=== PATIENT | female | born 1945 | race Caucasian/White ===

== ENCOUNTER 2025-05-01 02:06 | Inpatient (IN) | payer OTHER, SELFPAY ==
[2025-04-30 23:26] VITALS: BP 110/70
[2025-04-30 23:32] VITALS: BMI 37.7
[2025-04-30 23:33] VITALS: BP 110/70
[2025-04-30] MEDS: MORPHINE SULFATE 4 MG IV (23:35)
[2025-04-30] MEDS: ZOFRAN 4 MG IV (23:36)
[2025-04-30 23:50] LABS: Hematocrit 40.6 % (37.0-47.0); Hemoglobin 13.7 g/dL (12.0-16.0); Mean Corp Hgb Conc. 33.7 g/dL (33.0-37.0); Mean Corpuscular Volume 93.1 fL (81.0-99.0); Nucleated Red Blood Cells % 0 %; Platelet Count 225 10^3/uL (130-400); Red Cell Dist. Width 13.8 % (11.5-14.5)
[2025-04-30 23:56] LABS: INR 0.96; PT 13.1 Sec (11.4-14.6)
[2025-04-30 23:57] LABS: APTT 23.0 Sec (23.4-35.0)
[2025-05-01] VITALS (21 sets, daily range): BP systolic 100–142; BP diastolic 47–101
[2025-05-01 00:02] LABS: ALT (SGPT) 19 U/L (0-35); AST (SGOT) 26 U/L (14-36); Albumin 4.4 g/dl (3.5-5.0); Alkaline Phosphatase 49 U/L (38-126); Blood Urea Nitrogen 27 mg/dl (7-17); Calcium 9.4 mg/dl (8.4-10.2); Carbon Dioxide 28 mmol/L (22-30); Chloride 106 mmol/L (98-107); Estimated Creatinine Clearance 56 ml/min; Glucose 117 mg/dl (70-99); Potassium 4.2 mmol/L (3.5-5.1); Sodium 138 mmol/L (135-145); Total Protein 7.5 g/dl (6.3-8.2); eGFR > 60.00
--- NOTE | 2025-05-01 00:35 | ED.GENMED ---
History of Present Illness
General
Chief Complaint: Fall
Source: patient and ambulance crew
Exam Limitations: none
Time Seen by Provider: 04/30/25 23:21
History of Present Illness
History of Present Illness:
Note:
CHIEF COMPLAINT(S)
Right hip pain following a fall.
HISTORY OF PRESENT ILLNESS
The patient, a female whose age is not provided, presented with right hip pain after falling onto her right side [place] the [place]. She describes difficulty and pain with any movement of the right leg, which is noted to be shortened and
externally rotated. There is no associated head trauma, neck pain, or back pain. The patient denies any chest or abdominal pain. She has previously not had any surgeries on her hips. The fall caused some bruising on her right elbow as well, but
there is no significant pain noted there.
Additional History
EMS states that she missed a step coming out of a college building.
PAST SURGICAL HISTORY
The patient states she has not had any previous surgeries on her hips.
PHYSICAL EXAM
General: Alert, no acute distress.
Skin: Warm, dry. Right elbow shows small amount of ecchymosis.
Musculoskeletal: Right leg is shortened and externally rotated. Unable to flex the hip, and there is pain with internal and external rotation.
Neurological: Alert and oriented to person, place, time, and situation. No focal neurological deficits observed.
No respiratory distress
PROBLEM LIST
- Acute: Fall with suspected right hip fracture.
- Bruising on the right elbow.
PLAN
- Obtain X-rays to evaluate for a possible hip fracture.
- Pain management will be initiated with morphine.
- Discuss plan for surgical intervention if a hip fracture is confirmed.
DIFFERENTIAL DIAGNOSIS
The Differential Diagnosis includes, in no particular order and is not limited to:
1. Hip fracture
2. Hip dislocation
3. Soft tissue injury (e.g., contusion, sprain)
4. Femoral neck fracture
5. Trochanteric fracture
6. Pelvic fracture
7. Musculoskeletal strain
8. Nerve impingement
9. Bursitis
10. Osteoarthritis exacerbation
Disposition:
SUMMARY OF ENCOUNTER
The patient presented to the emergency department with right hip pain following a fall. On physical exam, the right leg appeared shortened and externally rotated, indicating a possible hip fracture. X-rays confirmed a right intertrochanteric
fracture. Initial management included pain control, and the patient was kept NPO in anticipation of surgical intervention.
DISPOSITION
Admit.
ASSESSMENT
The primary assessment is a right intertrochanteric hip fracture secondary to a fall.
MANAGEMENT OF THE PATIENTS CARE WAS DISCUSSED WITH
The case was discussed with the orthopedic team and the hospitalist for further management and surgical planning.
PLAN
Admit the patient for orthopedic evaluation and surgical intervention. Continue pain management and keep the patient NPO.
INDEPENDENT REVIEW OF LABS AND INTERPRETATION OF TESTS
My independent review of the chemistry panel shows normal results. My independent review of the CBC indicates normal results.
Radiology Results:
- My independent interpretation of the x-ray confirms a right intertrochanteric fracture.
MEDICATION RECONCILIATION
Pain management administered in the emergency department; specific medication not documented, but tuning of pain control plan discussed.
MEDICAL DECISION MAKING
-Complexity of Data Reviewed: Differential diagnosis included hip fracture, which was confirmed through imaging and relevant data analysis.
-Data:
Category 1
X-ray ordered and independently interpreted confirming intertrochanteric fracture.
Category 3
Discussion of management with orthopedic and hospitalist teams for admission and surgical intervention.
CRITICAL CARE TIME
I provided critical care time due to the high probability of significant deterioration. This included developing a management plan and discussions with specialists.
DIAGNOSIS
Right intertrochanteric fracture (ICD-10: S72.143A).
Phy Exam
Physical Exam
Physical Exam:
.
Course
Orders/Labs/Results
Orders:
Orders
04/30/25 23:33
Morphine Sulfate 4 mg IV NOW STA
Ondansetron Injectable [Zofran] 4 mg IV NOW STA
04/30/25 23:40
Complete Blood Count/With Diff Urgent
Comprehensive Metabolic Panel Urgent
PTT Urgent
Prothrombin Time Urgent
05/01/25 00:00
CR Hip - RT w/wo Pel 2-3 Vw* Urgent
Reason For Exam: fall
Include a pelvis x-ray?: Yes
Abnormal Lab Results
04/30/25
23:40
MCH 31.4 H pg
(27.0-31.0)
MPV 10.6 H fL
(7.4-10.4)
Absolute Lymphs (auto) 4.2 H 10^3/uL
(1.2-3.4)
Absolute Monos (auto) 0.7 H 10^3/uL
(0.1-0.6)
Neutrophils % 39.7 L %
(42.2-75.2)
APTT 23.0 L Sec
(23.4-35.0)
BUN 27 H mg/dl
(7-17)
Glucose 117 H mg/dl
(70-99)
04/30/25 23:40
04/30/25 23:40
Vital Signs
Initial and Last Documented VS:
Initial Vital Signs
BP
110/70
04/30/25 23:26
Last Documented Vital Signs
Temp Pulse Resp BP Pulse Ox
97.5 F 80 18 110/70 97
04/30/25 23:33 04/30/25 23:33 04/30/25 23:33 04/30/25 23:33 05/01/25 00:36
*Pulse Oximetry
SaO2: 97
Oxygen Mode of Delivery: Room air
Patient hypoxic: no
*Critical Care Note
Total Time (30-74mins, 75-104mins- exclusive of procedures): Not Applicable
ED Attending Note
-
Portions of this chart may have been created with voice recognition software.� Occasional wrong word or��sound alike� substitutions may have occurred due to the inherent limitations of voice recognition software.
Discharge Plan
Departure
Patient Disposition: Admit
Date of Disposition: 05/01/25
Time of Disposition: 00:35
Admit to: Med/Surg
Presentation/result/management discussed w/ accepting MD/DO: Hospitalist
Discharge Problem:
Closed hip fracture
Referrals:
Adebayo Negrete MD [Family Provider, Family Practice]
Interventions
Interventions:
*Risk Screen - Suicide Last Done: 04/30/25 23:24
*General Assessment Last Done: 04/30/25 23:58
*Neglect/Abuse Screening Last Done: 04/30/25 23:24
*ED- Fall Risk Assessment Last Done: 04/30/25 23:58
ED-Musculoskeletal Assessment Last Done: 04/30/25 23:26
ED- Neurological Assessment Last Done: 04/30/25 23:25
ED-Skin Assessment Last Done: 04/30/25 23:57
Discharge Date and Time
Print Language: ARMENIAN
--- NOTE | 2025-05-01 01:41 | HPS.HSE ---
Family Physician
-
Family Physician: Adebayo Negrete
Chief Complaint
-
Fall
History of Present Illness
79-year-old female with past medical history of hypertension and hyperlipidemia presents to the emergency department with right hip pain after falling on her right side.
Patient fell from a standing height at a local college. She immediately had right-sided hip pain and difficulty with any movement of the right leg. It was noted to be shortened and externally rotated. She does not recall striking her head. She
denies any prior hip surgeries. She has some bruising on her elbows but otherwise no other significant injury. She denied feeling dizzy or lightheaded when she fell. She denies having any recent syncope. She is not on any blood thinners or
aspirin.
In the emergency department she was afebrile, blood pressure was 110/70 with a pulse of 80 and she was satting at 97% on room air. CBC unremarkable. Electrolytes BUN/creatinine were all within normal range.
X-ray of the hip shows a right intertrochanteric fracture.
Medical History
Past Medical History
Past Medical History: Reports HTN and Hypercholesterolemia
Past Surgical History: Reports None
Social History
Tobacco: Non-smoker
Alcohol: None
Drug: None
Family History
Family History: Not pertinent
Allergies / Home Medications
Allergies reflects when Allergies were last updated in [facility].
Home Medications with original date entered in [facility]
Allergy/Medication List:
Allergies
Allergy/AdvReac Type Severity Reaction Status Date / Time
No Known Allergies Allergy Unverified 04/30/25 23:20
Home Medications
amlodipine 5 mg tablet 5 mg PO DAILY 05/01/25
niacin 100 mg tablet 100 mg PO DAILY 05/01/25
simvastatin 10 mg tablet 10 mg PO DAILY 05/01/25
Review of Systems
-
Constitutional: Reports No Symptoms
EENT: Reports No Symptoms
Respiratory: Reports No Symptoms
Cardiac: Reports No Symptoms
Abdomen/GI: Reports No Symptoms
: Reports No Symptoms
Musculoskeletal: Reports Joint Pain
Skin: Reports No Symptoms
Neurological: Reports No Symptoms
Endocrine: Reports No Symptoms
Hematologic/Lymphatic: Reports No Symptoms
Psych: Reports No Symptoms
Physical Exam
Vital Signs
Vital Signs
Temp Pulse Resp BP Pulse Ox
97.5 F 80 18 110/70 97
04/30/25 23:33 04/30/25 23:33 04/30/25 23:33 04/30/25 23:33 05/01/25 00:36
Physical Exam
General: Well Developed, Well Nourished and No Apparent Distress
HEENT: NormoCephalic, Moist mucous membranes and Atraumatic
Respiratory: Clear
Cardiac: S1/S2 and Regular Rhythm; No Murmur or Rub
GI: Soft, Non Tender, Non Distended and Normal Bowel Sounds; No Organomegaly
Rectal: Deferred by Provider
Musculoskeletal: No Clubbing, No Cyanosis and No Edema
Skin: No Rash
Neuro: AO x 3 and Nonfocal/grossly intact
Laboratory Results
-
04/30/25 23:40
04/30/25 23:40
Laboratory Results
PT 13.1 Sec (11.4-14.6) 04/30/25 23:40
INR 0.96 04/30/25 23:40
APTT 23.0 Sec (23.4-35.0) L 04/30/25 23:40
Total Bilirubin 0.4 mg/dl (0.2-1.3) 04/30/25 23:40
AST 26 U/L (14-36) 04/30/25 23:40
ALT 19 U/L (0-35) 04/30/25 23:40
Alkaline Phosphatase 49 U/L (38-126) 04/30/25 23:40
Data Reviewed
-
Diagnostic Radiology: Image Personally Visualized and interpreted
Lab Data: Labs Reviewed by me
Old Records: Reviewed
Impression/Plan
-
IMPRESSION:
79-year-old with past medical history of hypertension and hyperlipidemia presents with mechanical fall found to have a right hip intertrochanteric femur fracture. No head strike. No thinners.
PLAN:
Right hip fracture
- Admit to MedSurg
-N.p.o. after midnight
-Gentle hydration for now
-Hold amlodipine
-Continue rosuvastatin and niacin
-Pain control
-Fracture protocol with bladder scan protocol
-PT OT eval
-Initiate chemical DVT prophylaxis after the OR
-Orthopedics consulted and aware, OR in a.m.
[2025-05-01] MEDS: TYLENOL PO ×3 (03:04→23:31)
[2025-05-01] MEDS: D5/0.9% SODIUM CHLORIDE 1000 IV ×2 (03:04→16:52)
[2025-05-01] MEDS: TYLENOL 650 MG PO ×3 (07:48→20:55)
--- NOTE | 2025-05-01 08:52 | CON.ORTHO ---
Consultation
-
Date/Time Consultation Requested: 05/01/2025
Date/Time Consultation Performed: 05/01/2025
Requesting Provider: Dr. Casanova
Performing Provider: Arleth Gaston PA-C, for Dr. Corbin Ramirez
Reason for Consultation: Right hip intertrochanteric fracture
Consultation - Orthopedics
History
HPI: Velvet is a 79 year old female who presented to ED after sustaining a fall onto her right hip while leaving a concert at [employer] last night. She was walking out an exit when she didn't see the step in front on her, causing her
to misstep and fall. She experienced immediate pain and inability to stand. She was brought to [facility] emergency department where x-rays demonstrated a nondisplaced intertrochanteric fracture. Overall, pain is well-controlled with
pain medication. She denies any radiation of her pain or numbness/tingling of the right lower extremity. She denies any prior issues with anesthesia. Our orthopedic specialty was consulted and she discussed surgical intervention of this fracture
going forward.
Past medical history: Significant for hypertension and hyperlipidemia.
Past surgical history: None reported.
Social history: Denies tobacco or alcohol use. Lives at home with her . Reports stairs in the home. Still working full-time.
Family history: Noncontributory.
Review of systems: All systems reviewed and negative except for those mentioned in HPI.
Allergies / Home Medications
Allergy/AdvReac Type Severity Reaction Status Date / Time
No Known Allergies Allergy Unverified 04/30/25 23:20
�Medication �Instructions �Recorded
amlodipine 5 mg tablet 5 mg PO DAILY 05/01/25
niacin 100 mg tablet 100 mg PO DAILY 05/01/25
simvastatin 10 mg tablet 10 mg PO DAILY 05/01/25
Vital Signs / Lab Results
Temp Pulse Resp BP Pulse Ox
97.5 F 78 16 110/58 96
04/30/25 23:33 05/01/25 04:02 05/01/25 04:02 05/01/25 04:02 05/01/25 06:30
04/30/25 23:40
04/30/25 23:40
Physical examination:
General: Well-developed, well-nourished female in no acute distress at rest. AAO x 4.
HEENT: Atraumatic, normocephalic, neck supple.
Heart: Regular rate and rhythm.
Lungs: Nonlabored breathing on room air.
Right hip: Diffuse tenderness to palpation. No significant swelling or ecchymosis. Calf soft and nontender palpation. Range of motion not tested. Neurovascular intact distally.
Radiographic studies:
X-rays of the right hip demonstrate a nondisplaced intertrochanteric fracture.
Assessment / Plan
Assessment: Right hip intertrochanteric fracture.
Plan: Unfortunately, Velvet sustained a nondisplaced intertrochanteric hip fracture during her fall last night. We discussed treatment recommendations including both nonsurgical and surgical interventions. At this time, recommendation is to
proceed with a right hip open reduction internal fixation with gamma nail under the direction of Dr. Ramirez later this morning. The procedure was explained in detail along with the associated risk, benefits, and recovery process. She will be
weightbearing as tolerated following the procedure. 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 The right hip was marked as the correct surgical site. She has been n.p.o. IV antibiotics on-call to the OR. All
questions were answered and patient was in agreement with treatment recommendations going forward.
--- NOTE | 2025-05-01 16:43 | W.PN.UPDATE ---
Update Note
Progress Note Update
multiple attempts to see her.
Unfortunately she was not in the room as she was in PACU or the OR.
I went to both rooms's ED 38 and ED 21
--- NOTE | 2025-05-01 17:30 | PTCARENOTE ---
Telephone report received from MEDIA SERVICES DIRECTOR Raegan; patient arrived in bed @17:25 with IVF infusing and on 2L; VSS; see Neurovascular documentation.
[2025-05-01] MEDS: ASPIRIN 325 MG PO (17:44)
[2025-05-01] MEDS: ANCEF 5 IV (20:54)
[2025-05-01] MEDS: COLACE PO (20:55)
[2025-05-01] MEDS: SENOKOT PO (20:55)
[2025-05-02] VITALS (7 sets, daily range): BP systolic 110–135; BP diastolic 59–77; PULSE 86
[2025-05-02] MEDS: ANCEF 5 IV (03:00)
[2025-05-02] MEDS: TYLENOL 650 MG PO ×5 (03:00→19:50)
[2025-05-02] MEDS: D5/0.9% SODIUM CHLORIDE IV (06:04)
[2025-05-02 06:59] LABS: Hematocrit 32.9 % (37.0-47.0); Hemoglobin 11.2 g/dL (12.0-16.0); Mean Corp Hgb Conc. 34.0 g/dL (33.0-37.0); Mean Corpuscular Volume 94.8 fL (81.0-99.0); Platelet Count 184 10^3/uL (130-400); Red Cell Dist. Width 14.1 % (11.5-14.5)
[2025-05-02 07:17] LABS: Blood Urea Nitrogen 13 mg/dl (7-17); Calcium 8.5 mg/dl (8.4-10.2); Carbon Dioxide 24 mmol/L (22-30); Chloride 110 mmol/L (98-107); Estimated Creatinine Clearance 84 ml/min; Glucose 140 mg/dl (70-99); Potassium 4.0 mmol/L (3.5-5.1); Sodium 140 mmol/L (135-145); eGFR > 60.00
[2025-05-02] MEDS: COLACE 100 MG PO ×2 (09:16→19:50)
[2025-05-02] MEDS: ASPIRIN 325 MG PO (09:17)
[2025-05-02] MEDS: ROXICODONE 5 MG PO (09:18)
[2025-05-02] MEDS: SENOKOT PO ×2 (10:12→19:50)
--- NOTE | 2025-05-02 10:47 | W.PN.ORTHO ---
Today's Communication / Plan
-
Appreciate the hospitalist team, continue treatment
Dispo per CM- patient desires to return home
Continue WBAT on walker/assistance
PT/OT
ASA. 25 mg daily for DVT ppx
pain control, ice to hip
Dressings to remain 7-10 days
[place] out 2 weeks post-op (if patient goes home)
Outpatient orthopedic follow-up in 2 weeks for staple removal and x-rays
Will follow
Assessment
.
Distal Motor Intact: Yes
Dressing:
Clean, dry and intact. Aquacels in place with scant strikethrough
Assessment:
POD#1 right hip ORIF
Overall doing/feeling well
Calf soft, nontender
Plan
.
Surgery / Date: Right hip ORIF May 06 ([place])
DVT Prophylaxis: Aspirin
Activity:
Out of bed. WBAT RLE on walker/assistance
PT/OT
Discharge Plan: Other (appreciate CM- desires to go home)
Subjective
.
.:
Patient resting comfortably this AM. Minimal pain. Pleasant and conversational
Vital Signs and Labs
.
Vital Signs and Labs:
Lab Results
05/02/25 06:24
05/02/25 06:24
Temp Pulse Resp BP Pulse Ox
98.2 F 87 18 135/77 95
05/02/25 07:00 05/02/25 07:00 05/02/25 07:00 05/02/25 07:00 05/02/25 07:00
PT 13.1 Sec (11.4-14.6) 04/30/25 23:40
INR 0.96 04/30/25 23:40
--- NOTE | 2025-05-02 11:01 | CM ---
Reviewed the chart notes and spoke with the patient at the bedside. The patient is s/p right hip ORIF. The patient resides with her spouse in a two story townhouse with no steps to enter. The patient reports no DME/VN/SNF in the past. The
patient confirmed her pharmacy of choice is [facility]. PT/OT evaluations pending. CM continues to be available to patient/family and is monitoring medical plan for needs at discharge.
Plan: Discharge plans will depend on the patient's progress. Patient is hoping for home with services.
--- NOTE | 2025-05-02 13:20 | W.PN.HOSP.TC ---
Today's Communication/Plan
-
cbc, cmp
Assessment / Plan
Assessment / Plan
79yrs old F on POD #1 Right Hip ORIF
# Right hip intertrochanteric fracture with Right side ORIF:
Continue WBAT on walker/assistance
PT/OT
ASA. 25 mg daily for DVT ppx
pain control, ice to hip
Dressings to remain 7-10 days
[place] out 2 weeks post-op (if patient goes home)
Outpatient orthopedic follow-up in 2 weeks for staple removal and x-rays
# Hyperlipidemia:
Continuing Simvastatin 10 mg PO
# Hypertension:
Amlopdine 5 mg
DVT Prophylaxis: Aspirin
Anticipated Discharge: 24 - 48 hours
Subjective/Interval History
-
Date of Service: May 02, 2025
79yrs old F on POD#1 right hip ORIF with past medical h/o HTN, HLD presents to ER with Right hip by falling on right side. Pt fell from standing height. No overnight concerns for hip pain, numbness, tingling sensation on her right leg, right foot.
Objective Data
-
Labs:
05/02/25 06:24
05/02/25 06:24
Laboratory Results
PT 13.1 Sec (11.4-14.6) 04/30/25 23:40
INR 0.96 04/30/25 23:40
APTT 23.0 Sec (23.4-35.0) L 04/30/25 23:40
Total Bilirubin 0.4 mg/dl (0.2-1.3) 04/30/25 23:40
AST 26 U/L (14-36) 04/30/25 23:40
ALT 19 U/L (0-35) 04/30/25 23:40
Alkaline Phosphatase 49 U/L (38-126) 04/30/25 23:40
Laboratory Results
05/02/25
06:24
WBC 10.5
Hgb 11.2 L
Hct 32.9 L
Plt Count 184
Sodium 140
Potassium 4.0
Chloride 110 H
Carbon Dioxide 24
BUN 13
Creatinine 0.6
Glucose 140 H
Calcium 8.5
Vital Signs:
Vital Signs
Temp Pulse Resp BP Pulse Ox
98.3 F 80 18 122/59 95
05/02/25 11:24 05/02/25 11:24 05/02/25 11:24 05/02/25 11:24 05/02/25 11:24
I&O
05/01/25 05/02/25 05/03/25
06:59 06:59 06:59
Intake Total 1510 / 1510
Balance 1510 / 1510
Review of Systems
-
History Source: Patient
All other systems: Reviewed and negative
Physical Exam
-
General: No Apparent Distress
HEENT: Normocephalic
Respiratory: Clear to Auscultation
Cardiac: Regular Rhythm and S1/S2
GI: Soft, Nontender and Nondistended
Genito-urinary: No Costovertebral Tender
Skin: Warm
Neuro: AO x 3
Hematologic / Lymphatic: No Lymphadenopathy
Psych: Calm
--- NOTE | 2025-05-02 15:34 | W.PN.UPDATE ---
Update Note
Progress Note Update
Seen and examined by me independently in collaboration with the director of medical staff services.
Lab data and imaging data reviewed.
Addendum as below :
Status post right hip ORIF. Denies any cardiopulmonary symptoms. She is hemodynamically stable and not hypoxic. Chest is clear. Pain from fracture repair site tolerable.
Seen by PT OT today.
Patient likely home tomorrow depending on therapy recommendations.
[2025-05-03] MEDS: TYLENOL PO (00:41)
--- NOTE | 2025-05-03 02:22 | DOWNTIME ---
There was a [employer] Client Scalping Machine Operator Downtime on 05/03/2025 from 0100 to 05/03/2025 at 0220. Downtime documentation of patient's care, including medication administrations, has been reconciled in the electronic record per guidelines. Refer to the
patient's paper chart under the miscellaneous tab to see printed paper medication records and downtime forms.
[2025-05-03] MEDS: TYLENOL 650 MG PO ×4 (04:04→16:46)
--- NOTE | 2025-05-03 06:46 | W.PN.HOSP.TC ---
Today's Communication/Plan
-
Future follow up with Ortho
Assessment / Plan
Assessment / Plan
79yrs old F on POD #1 Right Hip ORIF
# Right hip intertrochanteric fracture with Right side Open Reduction and Internal Fixation:
-Continue WBAT on walker/assistance
-PT/OT
-ASA. 25 mg daily for DVT ppx
-pain control, ice to hip
-Dressings to remain 7-10 days
-[place] out 2 weeks post-op (if patient goes home)
-Outpatient orthopedic follow-up in 2 weeks for staple removal and x-rays
- Oxycodone 5 mg added for the post op pain PRN.
# Hyperlipidemia:
Continuing Simvastatin 10 mg PO
# Hypertension:
Amlopdine 5 mg
DVT Prophylaxis: Aspirin
code: full
Anticipated Discharge: Today
Subjective/Interval History
-
Date of Service: May 03, 2025
Not concern for chest pain, palpitation, numbness on the left leg and foot,bleeding from the right side ORIF.
Able to sit on the chair,passed flatus, feels constipated.
Objective Data
-
Labs:
Laboratory Results
Vital Signs:
Laboratory Results
PT 13.1 Sec (11.4-14.6) 04/30/25 23:40
INR 0.96 04/30/25 23:40
APTT 23.0 Sec (23.4-35.0) L 04/30/25 23:40
Total Bilirubin 0.4 mg/dl (0.2-1.3) 04/30/25 23:40
AST 26 U/L (14-36) 04/30/25 23:40
ALT 19 U/L (0-35) 04/30/25 23:40
Alkaline Phosphatase 49 U/L (38-126) 04/30/25 23:40
Vital Signs
Temp Pulse Resp BP Pulse Ox
97.9 F 79 16 110/65 96
05/02/25 23:25 05/02/25 23:25 05/02/25 23:25 05/02/25 23:25 05/02/25 16:00
I&O
05/01/25 05/02/25 05/03/25
06:59 06:59 06:59
Intake Total 1510 / 1510 720 / 720
Balance 1510 / 1510 720 / 720
Review of Systems
-
History Source: Patient
All other systems: Reviewed and negative
EENT: Reports No Symptoms Reported
Respiratory: Reports No Symptoms
Cardiac: Reports No Symptoms
Abdomen/GI: Reports Constipated and Other (passed flatus overnight.)
--- NOTE | 2025-05-03 07:14 | W.PN.ORTHO ---
Today's Communication / Plan
-
POD#2 right hip gamma nail under the direction of Dr. Ramirez
--Dispo per CM- patient desires to return home
--Continue WBAT on walker/assistance
--PT/OT
--ASA 325 mg daily for DVT ppx x4 weeks postop
--pain control, ice to hip
--Dressings to remain 7-10 days
--[place] out 2 weeks post-op (if patient goes home)
--Outpatient orthopedic follow-up in 2 weeks for staple removal and x-rays
--Patient is orthopedically stable postop. Orthopedics will sign off at the time. Please reach out with any questions or concerns
Assessment
.
Distal Motor Intact: Yes
Dressing:
Clean, dry and intact.
Plan
.
Surgery / Date: Right hip ORIF May 06 ([place])
DVT Prophylaxis: Aspirin
Activity:
Out of bed.
PT/OT
Subjective
.
.:
Patient resting comfortably in bed this morning. She reports that her pain is manageable. She has been out of bed with PT
Vital Signs and Labs
.
Vital Signs and Labs:
Temp Pulse Resp BP Pulse Ox
97.9 F 79 16 110/65 96
05/02/25 23:25 05/02/25 23:25 05/02/25 23:25 05/02/25 23:25 05/02/25 16:00
PT 13.1 Sec (11.4-14.6) 04/30/25 23:40
INR 0.96 04/30/25 23:40
Physical Exam
-
RLE: Primaseal dressings in place. There is tiny amount of strikethrough to proximal dressing. Mild expected edema. +TTP over the lateral hip. Thigh is soft and compressible. Able to plantarflex and dorsiflex the ankle. Calf soft and nontender. NVI
distally
[2025-05-03] MEDS: LIPITOR 10 MG PO (07:39)
[2025-05-03] MEDS: ASPIRIN 325 MG PO (07:39)
[2025-05-03] MEDS: COLACE 100 MG PO (07:39)
[2025-05-03] MEDS: SENOKOT 17.2 MG PO (07:39)
[2025-05-03 07:46] VITALS: BP 143/69
[2025-05-03] MEDS: NORVASC 5 MG PO (07:47)
--- NOTE | 2025-05-03 10:53 | CM ---
Addendum entered by Velvet Richardson 05/03/25 16:58:
to transport
Addendum entered by Velvet Richardson 05/03/25 16:56:
[facility] accepted in [facility]
Original Note:
Patient seen at bedside
PT/OT rec Home Health
Options reviewed - prefer [facility]
Referral entered - spoke with [place]
IMM explained & signed. In chart
PLAN: Home with [facility] fax #: [phone]
[2025-05-03 12:21] LABS: Hematocrit 35.9 % (37.0-47.0); Hemoglobin 11.8 g/dL (12.0-16.0); Mean Corp Hgb Conc. 32.9 g/dL (33.0-37.0); Mean Corpuscular Volume 95.5 fL (81.0-99.0); Platelet Count 190 10^3/uL (130-400); Red Cell Dist. Width 14.5 % (11.5-14.5)
[2025-05-03 12:45] LABS: Blood Urea Nitrogen 19 mg/dl (7-17); Calcium 9.1 mg/dl (8.4-10.2); Carbon Dioxide 26 mmol/L (22-30); Chloride 108 mmol/L (98-107); Estimated Creatinine Clearance 72 ml/min; Glucose 102 mg/dl (70-99); Potassium 4.0 mmol/L (3.5-5.1); Sodium 140 mmol/L (135-145); eGFR > 60.00
--- NOTE | 2025-05-03 14:16 | W.PN.UPDATE ---
Update Note
Progress Note Update
Seen and examined by me independently in collaboration with the medical insurance clerk.
Lab data and imaging data reviewed.
Addendum as below :
Pain adequately controlled.
Denies any chest pain shortness of breath, palpitations. No nausea vomiting tolerating diet. Denies dizziness.
Chest is clear.
H&H noted., Stable.
Medically stable for discharge home with home health. PT recommendations noted.
Wrote a prescription for bedside commode as recommended by OT.
Follow-up with orthopedics as planned. DVT prophylax with aspirin.
Continue with home medication as before without any changes.
Total time of discharge 32 minutes
[2025-05-03 15:25] VITALS: BP 150/83
--- NOTE | 2025-05-03 16:11 | W.DCSUMMARY ---
Discharge Summary
Discharge Data
Date of Admission: 05/01/25
Date of Discharge: 05/03/25
Total time spent discharging patient (in min): 15 mins
-
Pending Results: No
Hospital Course
Discharging Physician : Dr Yrn Howard
Hernan Kendrick MD
Disposition : Home with Home Care.
Primary care physician : Dr Adebayo Negrete.
Principal Discharge diagnosis : Right Hip Intertrochanteric fracture.
Chronic Discharge diagnosis :
Hypertension
Hyperlipidemia
Hospital Course :
On 05/01 79-year-old female with past medical history of hypertension and hyperlipidemia presents to the emergency department with right hip pain after falling on her right side.Patient fell from a standing [place] at a local [employer]. She
immediately had right-sided hip pain and difficulty with any movement of the right leg. It was noted to be shortened and externally rotated. She couldnt recall striking her head. She denied any prior hip surgeries. She had some bruising on her
elbows but otherwise no other significant injury. She denied feeling dizzy or lightheaded,any recent syncope when she fell.She was not on any blood thinners or aspirin. In the emergency department she was afebrile, blood pressure was 110/70 with a
pulse of 80 and she was sitting at 97% on room air. CBC unremarkable. Electrolytes BUN/creatinine were all within normal range. While on the POST OP pt was stable, no numbness, no active hemorrhage at the site of the wound. Right hip
intertrochanteric fracture with Right side Open Reduction and Internal Fixation done and on Post Op Day 2 pt was discharged with home care for PT,OT evaluation, and advised to continue WBAT on walker/assistance, Aspirin 325 mg daily for DVT ppx,
with Oxycodone 5 mg pain control, ice to hip, Dressing instruction. Requested for the Outpatient orthopedic follow-up in 2 weeks for staple removal and x-rays. Patient was stable while on the discharge.
Important imaging findings :
On 05/01/25:
X-ray of the hip showed a right intertrochanteric fracture of proximal right femur is seen.
There is a possible old healed fracture of the right inferior pubic ramus.
Osseous degenerative changes are noted.
POST OP X RAY HIP on 05/01/25:
ORIF of an acute intertrochanteric fracture of the right proximal femur with a long stem gamma nail which appears in normal position.
Procedure findings :
Open Reduction with Internal Fixation done on 05/01/25.
Discharge Plan
-
Patient Disposition: Home with Home Care
Discharge Diagnosis/Procedures: Right hip Intertrochanteric fracture with R ORIF
Condition: Good
Diet: No restrictions
Activity: As tolerated and With Walker
Additional Activity: weight bearing as tolerated
Driving Restrictions: Not until seen by your Dr
Bathing Restrictions: None
Other Services: PT
Wound Care: -Continue WBAT on walker/assistance
-Physical therapy to be continued at home while on discharge.
-ASA 325 mg daily for DVT ppx x 4 weeks postop
-Take pain medication if its needed.
- Apply ice to hip
-Dressings to remain 7-10 days
-[facility] out 2 weeks post-op (if patient goes home)-
-follow-up in 2 weeks for staple removal and x-rays as an Outpatient orthopedic
Activity Restrictions/Additional Instructions:
Weight bearing as tolerated
Avoid driving until you see your dr for the next week.
Instructions: Wound Care (DC)
Referrals:
Adebayo Negrete MD [Family Provider, Family Practice]
Corbin Ramirez MD [Active, Orthopedics] - in two weeks
Additional Discharge Medication Instructions: - Continue WBAT on walker/assistance
-Physical therapy to be continued at home while on discharge.
-ASA 325 mg daily for DVT ppx x 4 weeks postop.
-Take pain medication if its needed.
-Apply ice to hip
-Dressings to remain 7-10 days
-[facility] out 2 weeks post-op (if patient goes home)
-follow-up in 2 weeks for staple removal and x-rays as an Outpatient orthopedic
Prescriptions:
New
aspirin 325 mg capsule
325 mg PO DAILY Qty: 28 0RF
docusate sodium 100 mg Capsule
100 mg PO BID Qty: 20 0RF
oxycodone 5 mg Tablet
5 mg PO Q6HPRN PRN (Reason: mild pain) Qty: 20 0RF
polyethylene glycol 3350 [Miralax] 17 gram powder in packet
17 g PO DAILY PRN (Reason: Constipation) Qty: 14 0RF
Continued
niacin 100 mg Tablet
100 mg PO DAILY
simvastatin 10 mg Tablet
10 mg PO DAILY Qty: 0 0RF
amlodipine 5 mg Tablet
5 mg PO DAILY Qty: 0 0RF
Discharge Orders:
Discharge Patient (As Directed); Ordered 05/03/25
Ordered By: Hernan Cole
Discharge Date and Time
Print Language: JAPANESE
== END 2025-05-03 17:30 | disposition home health service (06) | DRG 482 ==
LOC: 2 SOUTH 02:06
PROVIDERS: Hospitalist; ADMITTING PHYSICIAN Internal Medicine; ATTENDING PHYSICIAN Internal Medicine; CONSULT PHYSICIAN Orthopaedic Surgery Hand Surgery; EMERGENCY PHYSICIAN Emergency Medicine; FAMILY PHYSICIAN Family Medicine
PROC: 0QS606Z Reposition Right Upper Femur with Intramedullary Internal Fixation Device, Open Approach (ICD-10-PCS; 2025-05-01)
DX: S72.141A Displaced intertrochanteric fracture of right femur, initial encounter for closed fracture (principal); I10 Essential (primary) hypertension; E78.00 Pure hypercholesterolemia, unspecified; W01.0XXA Fall on same level from slipping, tripping and stumbling without subsequent striking against object, initial encounter; Y93.01 Activity, walking, marching and hiking; Y92.214 College as the place of occurrence of the external cause
CPT/HCPCS: 73502; 76000; 80048; 80053; 85025; 85027; 85610; 85730; 96365; 96366; 96375; 97116; 97162; 97166; 97530; 97535; 99285; C1713